=== PATIENT | female | born 1975 | race Caucasian/White ===

== ENCOUNTER → 2020-02-25 | Outpatient (CLI) | payer OTHER | END | disposition home or self-care (01) | LOC: RAD 12:24 | PROVIDERS: ATTEND Nurse Practitioner | DX: R60.0 Localized edema (principal); M79.671 Pain in right foot; H65.01 Acute serous otitis media, right ear; J30.1 Allergic rhinitis due to pollen; M72.2 Plantar fascial fibromatosis ==